=== PATIENT | male | born 1990 | race Caucasian/White ===

== ENCOUNTER 2019-12-17 01:16 | Inpatient (IN) | payer OTHER ==
[~2019-12-17] VITALS: Ht 180.3 cm; Wt 96.0 kg
[2019-12-17] VITALS (9 sets, daily range): BP systolic 96–112; BP diastolic 45–63
[2019-12-17] MEDS ORDERED: IV NORMAL SALINE 1000ML BAG 1,000 ML IV ONE (01:30)
[2019-12-17] MEDS ORDERED: PANTOPRAZOLE IV PUSH 40 MG VIAL. IVP ONE (01:30)
--- NOTE | 2019-12-17 01:38 | PHYS DOC ---
Adult General Chief Complaint Chief Complaint: HEMATEMESIS/VOMITING BLOOD HPI HPI Patient is a 29 year old male with history of peptic ulcer disease who presents with hematemesis just prior to arrival. Patient was attending a concert drinking alcohol and he vomited a large quantity of bright red blood. Patient with bright red blood staining his face arms, legs. Reports dizziness and upper abdominal pain. Patient not currently on any antacids. Previously referred to GI physician has not seen in follow-up. No history of esophageal varices. [] Review of Systems Review of Systems ROS as per HPI Current Medications Current Medications Current Medications Medications (Trade) Dose Ordered Sig/Lisa Start Time Stop Time Status Last Admin Dose Admin Iohexol (Omnipaque 300 Mg/ml) 75 ml 1X ONCE 12/17/19 02:30 12/17/19 02:31 DC 12/17/19 02:31 75 ML Ondansetron HCl (Zofran) 4 mg PRN Q8HRS PRN 12/17/19 02:45 12/18/19 02:44 Pantoprazole Sodium (PROTONIX VIAL for IV PUSH) 80 mg 1X ONCE 12/17/19 01:30 12/17/19 01:37 DC 12/17/19 02:06 80 MG Pantoprazole Sodium 80 mg/ Sodium Chloride 100 ml @ 10 mls/hr Q10H 12/17/19 01:45 12/17/19 02:00 10 MLS/HR Sodium Chloride 1,000 ml @ 125 mls/hr Q8H 12/17/19 02:45 12/18/19 02:44 Allergies Allergies Allergies Coded Allergies Type Severity Reaction Last Updated Verified No Known Drug Allergies 12/17/19 No Physical Exam Physical Exam Constitutional: Well developed, well nourished, no acute distress, non-toxic appearance. [] HENT: Normocephalic, atraumatic, bilateral external ears normal, oropharynx moist, nose normal. [] Eyes: PERRL, EOMI. [] Neck: Normal range of motion, no tenderness. [] Cardiovascular:Heart rate regular rhythm, no murmur [] Lungs & Thorax: Bilateral breath sounds clear to auscultation [] Abdomen: Bowel sounds normal, soft, epigastric tenderness. [] Skin: Warm, pale. [] Back: No tenderness. [] Extremities: No tenderness, no edema. [] Neurologic: Alert and oriented X 3, normal motor function, normal sensory function, no focal deficits noted. [] Psychologic: Affect normal, judgement normal, mood normal. [] Current Patient Data Vital Signs Vital Signs Date Time Temp Pulse Resp B/P (MAP) Pulse Ox O2 Delivery O2 Flow Rate FiO2 12/17/19 01:17 98.0 99 16 119/77 (91) 99 Room Air 98.0 Lab Values Laboratory Tests Test 12/17/19 01:31 White Blood Count 13.0 x10^3/uL (4.0-11.0) H Red Blood Count 4.76 x10^6/uL (4.30-5.70) Hemoglobin 13.7 g/dL (13.0-17.5) Hematocrit 40.2 % (39.0-53.0) Mean Corpuscular Volume 85 fL (79-100) Mean Corpuscular Hemoglobin 29 pg (25-35) Mean Corpuscular Hemoglobin Concent 34 g/dL (31-37) Red Cell Distribution Width 12.8 % (11.5-14.5) Platelet Count 281 x10^3/uL (140-400) Neutrophils (%) (Auto) 71 % (31-73) Lymphocytes (%) (Auto) 20 % (24-48) L Monocytes (%) (Auto) 6 % (0-9) Eosinophils (%) (Auto) 2 % (0-3) Basophils (%) (Auto) 1 % (0-3) Neutrophils # (Auto) 9.2 x10^3/uL (1.8-7.7) H Lymphocytes # (Auto) 2.6 x10^3/uL (1.0-4.8) Monocytes # (Auto) 0.8 x10^3/uL (0.0-1.1) Eosinophils # (Auto) 0.2 x10^3/uL (0.0-0.7) Basophils # (Auto) 0.1 x10^3/uL (0.0-0.2) Prothrombin Time 13.5 SEC (11.7-14.0) Prothrombin Time INR 1.1 (0.8-1.1) Activated Partial Thromboplast Time 22 SEC (24-38) L Sodium Level 141 mmol/L (136-145) Potassium Level 3.8 mmol/L (3.5-5.1) Chloride Level 103 mmol/L (98-107) Carbon Dioxide Level 25 mmol/L (21-32) Anion Gap 13 (6-14) Blood Urea Nitrogen 22 mg/dL (8-26) Creatinine 0.8 mg/dL (0.7-1.3) Estimated GFR (Cockcroft-Gault) 115.1 BUN/Creatinine Ratio 28 (6-20) H Glucose Level 130 mg/dL (70-99) H Calcium Level 8.1 mg/dL (8.5-10.1) L Total Bilirubin 0.3 mg/dL (0.2-1.0) Aspartate Amino Transferase (AST) 22 U/L (15-37) Alanine Aminotransferase (ALT) 40 U/L (16-63) Alkaline Phosphatase 59 U/L (46-116) Total Protein 6.4 g/dL (6.4-8.2) Albumin 3.5 g/dL (3.4-5.0) Albumin/Globulin Ratio 1.2 (1.0-1.7) Lipase 143 U/L (73-393) Ethyl Alcohol Level 65 mg/dL (0-10) H Laboratory Tests 12/17/19 01:31 Laboratory Tests 12/17/19 01:31 EKG EKG [] Radiology/Procedures Radiology/Procedures [] Course & Med Decision Making Course & Med Decision Making Pertinent Labs and Imaging studies reviewed. (See chart for details) [IV Protonix given. No recurrent bleeding in the ED. Will admit to hospital service with GI consult. Patient to remain n.p.o.] Jonah Disclaimer Jonah Disclaimer This electronic medical record was generated, in whole or in part, using a voice recognition dictation system. Departure Departure Impression: Primary Impression: Acute upper GI bleed Disposition: ADMITTED INPATIENT Condition: IMPROVED HOPE ALVARADO DO Dec 17, 2019 01:38
[2019-12-17 01:42] LABS: BASO # 0.1 x10^3/uL (0.0-0.2); BASO % 1 % (0-3); EOS # 0.2 x10^3/uL (0.0-0.7); EOS % 2 % (0-3); HEMATOCRIT 40.2 % (39.0-53.0); HEMOGLOBIN 13.7 g/dL (13.0-17.5); LYMPH # 2.6 x10^3/uL (1.0-4.8); LYMPH % 20 % (24-48); MEAN CORPUSCULAR HEMOGLOBIN 29 pg (25-35); MEAN CORPUSCULAR HGB CONC 34 g/dL (31-37); MEAN CORPUSCULAR VOLUME 85 fL (79-100); MONO # 0.8 x10^3/uL (0.0-1.1); MONO % 6 % (0-9); NEUT # 9.2 x10^3/uL (1.8-7.7); NEUT % 71 % (31-73); PLATELET COUNT 281 x10^3/uL (140-400); RED BLOOD COUNT 4.76 x10^6/uL (4.30-5.70); RED CELL DISTRIBUTION WIDTH 12.8 % (11.5-14.5)
[2019-12-17] MEDS ORDERED: ONDANSETRON PF 4 MG/2 ML VIAL. IVP ONE (01:45)
[2019-12-17 01:52] LABS: CALCIUM 8.1 mg/dL (8.5-10.1); CREATININE 0.8 mg/dL (0.7-1.3); GFR 115.1; POTASSIUM 3.8 mmol/L (3.5-5.1)
[2019-12-17 01:56] LABS: PROTHROMBIN TIME PATIENT 13.5 SEC (11.7-14.0)
[2019-12-17 01:58] LABS: ALBUMIN 3.5 g/dL (3.4-5.0); ALBUMIN/GLOBULIN RATIO 1.2 (1.0-1.7); TOTAL BILIRUBIN 0.3 mg/dL (0.2-1.0); TOTAL PROTEIN 6.4 g/dL (6.4-8.2)
[2019-12-17] MEDS: PANTOPRAZOLE SODIUM IV DRIP 80 MG in IV NORMAL SALINE 100ML 100 ML IV SCH ×3 (02:00→23:25)
[2019-12-17] MEDS ORDERED: IOHEXOL 300 MG/ML 100ML VIAL. IV ONE (02:30)
--- NOTE | 2019-12-17 02:41 | RAD ---
CT ABD PELV W/ IV CONTRST ONLY History: Upper GI bleed. Technique: After the administration of intravenous contrast, CT imaging was performed of the abdomen and pelvis. Multiplanar images are reviewed. Exposure: One or more of the following individualized dose reduction techniques were utilized for this examination: 1. Automated exposure control 2. Adjustment of the mA and/or kV according to patient size 3. Use of iterative reconstruction technique. Comparison: None Findings: Lower chest: No consolidation or pleural effusion. Abdomen and pelvis: Distal esophageal wall thickening. Small hiatal hernia. No pneumoperitoneum. Mildly enlarged distal parasellar esophageal lymph node measures 1.1 x 1.1 cm. The liver, spleen, adrenal glands, pancreas and gallbladder are unremarkable. No biliary ductal dilatation. Patent portal and hepatic veins. Normal appearance of the kidneys. No hydronephrosis. Normal appendix. No evidence of bowel obstruction. No ascites. Small fat-containing umbilical hernia. Bones: No pathologic osseous lesions. Impression: 1. Mild distal esophageal wall thickening, may represent esophagitis. 2. Distal periesophageal enlarged lymph nodes, likely reactive. 3. Small hiatal hernia. Electronically signed by: Amari Krueger DO (12/17/2019 2:38 AM) [id number]
[2019-12-17] MEDS ORDERED: ONDANSETRON PF 4 MG/2 ML VIAL. IV PRN (02:45)
[2019-12-17] MEDS: IV NORMAL SALINE 1000ML BAG 1,000 ML IV SCH ×3 (03:50→22:55)
--- NOTE | 2019-12-17 04:08 | EKG ---
[facility] [address] [place] [address] Test Date: 2019-12-17 Test Time: 01:35:53 Pat Name: DAELE CANDACE Department: Room: Gender: M [employer]: : 1990 Requested By: HOPE ALVARADO Order Number: [id number] Reading MD: Measurements Intervals [place] Rate: 103 P: 42 ND: 142 QRS: 23 QRSD: 76 T: 12 QT: 300 QTc: 394 Interpretive Statements SINUS TACHYCARDIA LOW LIMB LEAD VOLTAGE QRS(T) CONTOUR ABNORMALITY CANNOT RULE OUT ANTEROSEPTAL MYOCARDIAL DAMAGE BORDERLINE ECG No previous ECG available for comparison
--- NOTE | 2019-12-17 04:20 | NUR ---
pt admitted to room 108 from ED at this time. denies n/v since he he arrived to this facility. VSS on room air. pt kept NPO per current orders, able to answer admission questions and provide home medication information without difficulty. pt oriented to room, call light, bathroom privileges, unit routines and plan of care; verbalizes understanding. call light within reach, will continue to closely monitor.
[2019-12-17] MEDS ORDERED: HYDR25TA PO (05:04)
[2019-12-17] MEDS ORDERED: CARI1.5C PO (05:04)
[2019-12-17] MEDS ORDERED: IV RINGERS,LACTATED 1000ML 1,000 ML IV SCH (08:58)
--- NOTE | 2019-12-17 09:46 | PDOC2 ---
CONSULT Date of Consult Date of Consult DATE: 12/17/19 TIME: 09:38 Identification/Chief Complaint Chief Complaint hematemesis History of Present Illness Reason for Visit: This is a 29 yo male with a recent history of heartburn and indigestion, who had an episode of coffee ground emesis a few weeks ago. He went to urgent care- records?- but was not put on any meds and does not have a PCP. He admits to intermittent alcohol use, possible more recently. He presents now with recent lacohol use and vomiting blood- describes as red. No abd pain, no melena. Some use of ibuprofen a few weeks ago but none recently. Past Medical History GI: GERD Past Surgical History Past Surgical History: No pertinent history Current Medications Current Medications Current Medications Pantoprazole Sodium 80 mg/ Sodium Chloride 100 ml @ 10 mls/hr Q10H IV Last administered on 12/17/19at 02:00; Start 12/17/19 at 01:45 Pantoprazole Sodium (PROTONIX VIAL for IV PUSH) 80 mg 1X ONCE IVP Last administered on 12/17/19at 02:06; Start 12/17/19 at 01:30; Stop 12/17/19 at 01:37; Status DC Ondansetron HCl (Zofran) 4 mg 1X ONCE IVP Last administered on 12/17/19at 01:59; Start 12/17/19 at 01:45; Stop 12/17/19 at 01:46; Status DC Sodium Chloride 1,000 ml @ 1,000 mls/hr 1X ONCE IV Last administered on 12/17/19at 01:59; Start 12/17/19 at 01:30; Stop 12/17/19 at 02:29; Status DC Iohexol (Omnipaque 300 Mg/ml) 75 ml 1X ONCE IV Last administered on 12/17/19at 02:31; Start 12/17/19 at 02:30; Stop 12/17/19 at 02:31; Status DC Ondansetron HCl (Zofran) 4 mg PRN Q8HRS PRN IV NAUSEA/VOMITING; Start 12/17/19 at 02:45; Stop 12/18/19 at 02:44 Sodium Chloride 1,000 ml @ 125 mls/hr Q8H IV Last administered on 12/17/19at 03:50; Start 12/17/19 at 02:45; Stop 12/18/19 at 02:44 Ringer's Solution 1,000 ml @ 50 mls/hr Q20H IV Last administered on 12/17/19at 09:32; Start 12/17/19 at 08:58; Stop 12/17/19 at 20:57 Active Scripts Active Reported Hydroxyzine Hcl 25 Mg Tablet 1 Tab PO PRN PRN Vraylar (Cariprazine Hydrochloride) 1.5 Mg Capsule 1 Cap PO DAILY 30 Days Allergies Allergies: Coded Allergies: No Known Drug Allergies (Unverified , 12/17/19) Physical Exam General: Alert, Oriented X3 HEENT: PERRLA Lungs: Clear to auscultation Heart: Regular rate, Normal S1, Normal S2 Abdomen: Normal bowel sounds, Soft, No tenderness, No hepatosplenomegaly, No masses Extremities: No clubbing, No cyanosis Neuro: Normal gait, Normal speech Psych/Mental Status: Mental status NL Vitals VITALS Vital Signs Date Time Temp Pulse Resp B/P (MAP) Pulse Ox O2 Delivery O2 Flow Rate FiO2 12/17/19 09:26 97.8 88 18 97 97.8 12/17/19 08:00 108/57 (74) Room Air Labs Labs Laboratory Tests Test 12/17/19 01:31 White Blood Count 13.0 x10^3/uL (4.0-11.0) Red Blood Count 4.76 x10^6/uL (4.30-5.70) Hemoglobin 13.7 g/dL (13.0-17.5) Hematocrit 40.2 % (39.0-53.0) Mean Corpuscular Volume 85 fL (79-100) Mean Corpuscular Hemoglobin 29 pg (25-35) Mean Corpuscular Hemoglobin Concent 34 g/dL (31-37) Red Cell Distribution Width 12.8 % (11.5-14.5) Platelet Count 281 x10^3/uL (140-400) Neutrophils (%) (Auto) 71 % (31-73) Lymphocytes (%) (Auto) 20 % (24-48) Monocytes (%) (Auto) 6 % (0-9) Eosinophils (%) (Auto) 2 % (0-3) Basophils (%) (Auto) 1 % (0-3) Neutrophils # (Auto) 9.2 x10^3/uL (1.8-7.7) Lymphocytes # (Auto) 2.6 x10^3/uL (1.0-4.8) Monocytes # (Auto) 0.8 x10^3/uL (0.0-1.1) Eosinophils # (Auto) 0.2 x10^3/uL (0.0-0.7) Basophils # (Auto) 0.1 x10^3/uL (0.0-0.2) Prothrombin Time 13.5 SEC (11.7-14.0) Prothromb Time International Ratio 1.1 (0.8-1.1) Activated Partial Thromboplast Time 22 SEC (24-38) Sodium Level 141 mmol/L (136-145) Potassium Level 3.8 mmol/L (3.5-5.1) Chloride Level 103 mmol/L (98-107) Carbon Dioxide Level 25 mmol/L (21-32) Anion Gap 13 (6-14) Blood Urea Nitrogen 22 mg/dL (8-26) Creatinine 0.8 mg/dL (0.7-1.3) Estimated GFR (Cockcroft-Gault) 115.1 BUN/Creatinine Ratio 28 (6-20) Glucose Level 130 mg/dL (70-99) Calcium Level 8.1 mg/dL (8.5-10.1) Total Bilirubin 0.3 mg/dL (0.2-1.0) Aspartate Amino Transf (AST/SGOT) 22 U/L (15-37) Alanine Aminotransferase (ALT/SGPT) 40 U/L (16-63) Alkaline Phosphatase 59 U/L (46-116) Total Protein 6.4 g/dL (6.4-8.2) Albumin 3.5 g/dL (3.4-5.0) Albumin/Globulin Ratio 1.2 (1.0-1.7) Lipase 143 U/L (73-393) Ethyl Alcohol Level 65 mg/dL (0-10) Laboratory Tests Test 12/17/19 01:31 White Blood Count 13.0 x10^3/uL (4.0-11.0) Red Blood Count 4.76 x10^6/uL (4.30-5.70) Hemoglobin 13.7 g/dL (13.0-17.5) Hematocrit 40.2 % (39.0-53.0) Mean Corpuscular Volume 85 fL (79-100) Mean Corpuscular Hemoglobin 29 pg (25-35) Mean Corpuscular Hemoglobin Concent 34 g/dL (31-37) Red Cell Distribution Width 12.8 % (11.5-14.5) Platelet Count 281 x10^3/uL (140-400) Neutrophils (%) (Auto) 71 % (31-73) Lymphocytes (%) (Auto) 20 % (24-48) Monocytes (%) (Auto) 6 % (0-9) Eosinophils (%) (Auto) 2 % (0-3) Basophils (%) (Auto) 1 % (0-3) Neutrophils # (Auto) 9.2 x10^3/uL (1.8-7.7) Lymphocytes # (Auto) 2.6 x10^3/uL (1.0-4.8) Monocytes # (Auto) 0.8 x10^3/uL (0.0-1.1) Eosinophils # (Auto) 0.2 x10^3/uL (0.0-0.7) Basophils # (Auto) 0.1 x10^3/uL (0.0-0.2) Prothrombin Time 13.5 SEC (11.7-14.0) Prothromb Time International Ratio 1.1 (0.8-1.1) Activated Partial Thromboplast Time 22 SEC (24-38) Sodium Level 141 mmol/L (136-145) Potassium Level 3.8 mmol/L (3.5-5.1) Chloride Level 103 mmol/L (98-107) Carbon Dioxide Level 25 mmol/L (21-32) Anion Gap 13 (6-14) Blood Urea Nitrogen 22 mg/dL (8-26) Creatinine 0.8 mg/dL (0.7-1.3) Estimated GFR (Cockcroft-Gault) 115.1 BUN/Creatinine Ratio 28 (6-20) Glucose Level 130 mg/dL (70-99) Calcium Level 8.1 mg/dL (8.5-10.1) Total Bilirubin 0.3 mg/dL (0.2-1.0) Aspartate Amino Transf (AST/SGOT) 22 U/L (15-37) Alanine Aminotransferase (ALT/SGPT) 40 U/L (16-63) Alkaline Phosphatase 59 U/L (46-116) Total Protein 6.4 g/dL (6.4-8.2) Albumin 3.5 g/dL (3.4-5.0) Albumin/Globulin Ratio 1.2 (1.0-1.7) Lipase 143 U/L (73-393) Ethyl Alcohol Level 65 mg/dL (0-10) Assessment/Plan Assessment/Plan Recent episodes of GI bleeding- coffee ground emesis a few weeks ago and now with red blood emesis. Some heartburn hx and recent alcohol use. Hgb and vitals are stable. Need to consider MW tear, eosphagitis, gastric ulcer, varices etc Plan- PPI urgent EGD stop alcohol and NSAIDS JUNIOR BATISTA MD Dec 17, 2019 09:46
[2019-12-17] MEDS ORDERED: PROPOFOL 20 ML IV ONE (09:54)
--- NOTE | 2019-12-17 10:38 | PDOC4 ---
PROCEDURE Procedure EGD Hematemesis Anesthesia- propofol Findings E- ulcerative esophagitis (GERD) 5 cm Hiatal hernia Small non bleeding Berkley Pablo tear G- gastritis D- normal Plan PPI (script given) daily - also prn Zofran NO ALCOHOL NO NSAIDS OK to d/c today if tolerating liquid diet JUNIOR BATISTA MD Dec 17, 2019 10:37
--- NOTE | 2019-12-17 10:43 | PDOC1 ---
History and Physical Date of Admission Date of Admission DATE: 12/17/19 TIME: 10:42 Identification/Chief Complaint Chief Complaint SEEN IN ER WITH HEMATEMESIS, 29 year old male with history of peptic ulcer disease who presents with hematemesis just prior to arrival. He was attending a concert drinking alcohol and he vomited a large quantity of bright red blood.seen with bright red blood staining his face arms, legs. c/o dizziness and upper abdominal pain. Previously referred to GI physician has not seen in follow-up. No known history of esophageal varices STARTED DRINKING AGE 22, heavily in last year, roommate drinks in excess Past Medical History Past Medical History alcohol abuse GI: GERD Past Surgical History Past Surgical History: No pertinent history Family History Family History: Alcohol Abuse, Hypertension Social History Smoke: No ALCOHOL: heavy Drugs: None Current Medications Current Medications Current Medications Pantoprazole Sodium 80 mg/ Sodium Chloride 100 ml @ 10 mls/hr Q10H IV Last administered on 12/17/19at 02:00; Start 12/17/19 at 01:45 Pantoprazole Sodium (PROTONIX VIAL for IV PUSH) 80 mg 1X ONCE IVP Last administered on 12/17/19at 02:06; Start 12/17/19 at 01:30; Stop 12/17/19 at 01:37; Status DC Ondansetron HCl (Zofran) 4 mg 1X ONCE IVP Last administered on 12/17/19at 01:59; Start 12/17/19 at 01:45; Stop 12/17/19 at 01:46; Status DC Sodium Chloride 1,000 ml @ 1,000 mls/hr 1X ONCE IV Last administered on 12/17/19at 01:59; Start 12/17/19 at 01:30; Stop 12/17/19 at 02:29; Status DC Iohexol (Omnipaque 300 Mg/ml) 75 ml 1X ONCE IV Last administered on 12/17/19at 02:31; Start 12/17/19 at 02:30; Stop 12/17/19 at 02:31; Status DC Ondansetron HCl (Zofran) 4 mg PRN Q8HRS PRN IV NAUSEA/VOMITING; Start 12/17/19 at 02:45; Stop 12/18/19 at 02:44 Sodium Chloride 1,000 ml @ 125 mls/hr Q8H IV Last administered on 12/17/19at 03:50; Start 12/17/19 at 02:45; Stop 12/18/19 at 02:44 Ringer's Solution 1,000 ml @ 50 mls/hr Q20H IV Last administered on 12/17/19at 09:32; Start 12/17/19 at 08:58; Stop 12/17/19 at 20:57 Propofol 20 ml @ As Directed STK-MED ONCE IV ; Start 12/17/19 at 09:54; Stop 12/17/19 at 09:54; Status DC Active Scripts Active Reported Hydroxyzine Hcl 25 Mg Tablet 1 Tab PO PRN PRN Vraylar (Cariprazine Hydrochloride) 1.5 Mg Capsule 1 Cap PO DAILY 30 Days Allergies Allergies: Coded Allergies: No Known Drug Allergies (Unverified , 12/17/19) ROS General: No: Chills, Night Sweats, Fatigue, Malaise, Appetite, Other PSYCHOLOGICAL ROS: YES: Anxiety, Behavioral Disorder; No: Concentration difficultie, Decreased libido, Depression, Disorientation, Hallucinations, Hostility, Irritablity, Memory difficulties, Mood Swings, Obsessive thoughts, Physical abuse, Sexual abuse, Sleep disturbances, Suicidal ideation, Other Eyes: No Blurry vision, No Decreased vision, No Double vision, No Dry eyes, No Excessive tearing, No Eye Pain, No Itchy Eyes, No Loss of vision, No Photophobia, No Scotomata, No Uses contacts, No Uses glasses, No Other HEENT: No: Heacaches, Visual Changes, Hearing change, Nasal congestion, Nasal discharge, Oral lesions, Sinus pain, Sore Throat, Epistaxis, Sneezing, Snoring, Tinnitus, Vertigo, Vocal changes, Other ALLERGY AND IMMUNOLOGY: No: Hives, Insect Bite Sensitivity, Itchy/Watery Eyes, Nasal Congestion, Post Nasal Drip, Seasonal Allergies, Other ENDOCRINE: No: Breast Changes, Galactorrhea, Hair Pattern Changes, Hot Flashes, Malaise/lethargy, Mood Swings, Palpitations, Polydipsia/polyuria, Skin Changes, Temperature Intolerance, Unexpected Weight Changes, Other Respiratory: No: Cough, Hemoptysis, Orthopnea, Pleuritic Pain, Shortness of breath, SOB with excertion, Sputum Changes, Stridor, Tachypnea, Wheezing, Other Cardiovascular: No Chest Pain, No Palpitations, No Orthopnea, No Paroxysmal Noc. Dyspnea, No Edema, No Lt Headedness, No Other Gastrointestinal: Yes Nausea, Yes Vomiting; No Abdominal Pain, No Diarrhea, No Constipation, No Melena, No Hematochezia, No Other Genitourinary: No Dysuria, No Frequency, No Incontinence, No Hematuria, No Retention, No Discharge, No Urgency, No Pain, No Flank Pain, No Other, No , No , No , No , No , No , No Musculoskeletal: No Gait Disturbance, No Joint Pain, No Joint Stiffness, No Joint Swelling, No Muscle Pain, No Muscular Weakness, No Pain In:, No Swelling In:, No Other Neurological: No Behavorial Changes, No Bowel/Bladder ControlChng, No Confusion, No Dizziness, No Gait Disturbance, No Headaches, No Impaired Coord/balance, No Memory Loss, No Numbness/Tingling, No Seizures, No Speech Problems, No Tremors, No Visual Changes, No Weakness, No Other Skin: No Dry Skin, No Eczema, No Hair Changes, No Lumps, No Mole Changes, No Mottling, No Nail Changes, No Pruritus, No Rash, No Skin Lesion Changes, No Other, No Acne Physical Exam Physical Exam Physical Exam Physical Exam Constitutional: Well developed, well nourished, no acute distress, non-toxic appearance. [] HENT: Normocephalic, atraumatic, bilateral external ears normal, oropharynx moist, nose normal. [] Eyes: PERRL, EOMI. [] Neck: Normal range of motion, no tenderness. [] Cardiovascular:Heart rate regular rhythm, no murmur [] Lungs & Thorax: Bilateral breath sounds clear to auscultation [] Abdomen: Bowel sounds normal, soft, epigastric tenderness. [] Skin: Warm, pale. [] Back: No tenderness. [] Extremities: No tenderness, no edema. [] Neurologic: Alert and oriented X 3, normal motor function, normal sensory function, no focal deficits noted. [] Psychologic: Affect normal, judgment normal, mood normal. [] Vitals Vitals Vital Signs Date Time Temp Pulse Resp B/P (MAP) Pulse Ox O2 Delivery O2 Flow Rate FiO2 12/17/19 10:28 97.8 84 18 77/39 96 Nasal Cannula 2 97.8 Labs Labs Laboratory Tests Test 12/17/19 01:31 White Blood Count 13.0 x10^3/uL (4.0-11.0) Red Blood Count 4.76 x10^6/uL (4.30-5.70) Hemoglobin 13.7 g/dL (13.0-17.5) Hematocrit 40.2 % (39.0-53.0) Mean Corpuscular Volume 85 fL (79-100) Mean Corpuscular Hemoglobin 29 pg (25-35) Mean Corpuscular Hemoglobin Concent 34 g/dL (31-37) Red Cell Distribution Width 12.8 % (11.5-14.5) Platelet Count 281 x10^3/uL (140-400) Neutrophils (%) (Auto) 71 % (31-73) Lymphocytes (%) (Auto) 20 % (24-48) Monocytes (%) (Auto) 6 % (0-9) Eosinophils (%) (Auto) 2 % (0-3) Basophils (%) (Auto) 1 % (0-3) Neutrophils # (Auto) 9.2 x10^3/uL (1.8-7.7) Lymphocytes # (Auto) 2.6 x10^3/uL (1.0-4.8) Monocytes # (Auto) 0.8 x10^3/uL (0.0-1.1) Eosinophils # (Auto) 0.2 x10^3/uL (0.0-0.7) Basophils # (Auto) 0.1 x10^3/uL (0.0-0.2) Prothrombin Time 13.5 SEC (11.7-14.0) Prothromb Time International Ratio 1.1 (0.8-1.1) Activated Partial Thromboplast Time 22 SEC (24-38) Sodium Level 141 mmol/L (136-145) Potassium Level 3.8 mmol/L (3.5-5.1) Chloride Level 103 mmol/L (98-107) Carbon Dioxide Level 25 mmol/L (21-32) Anion Gap 13 (6-14) Blood Urea Nitrogen 22 mg/dL (8-26) Creatinine 0.8 mg/dL (0.7-1.3) Estimated GFR (Cockcroft-Gault) 115.1 BUN/Creatinine Ratio 28 (6-20) Glucose Level 130 mg/dL (70-99) Calcium Level 8.1 mg/dL (8.5-10.1) Total Bilirubin 0.3 mg/dL (0.2-1.0) Aspartate Amino Transf (AST/SGOT) 22 U/L (15-37) Alanine Aminotransferase (ALT/SGPT) 40 U/L (16-63) Alkaline Phosphatase 59 U/L (46-116) Total Protein 6.4 g/dL (6.4-8.2) Albumin 3.5 g/dL (3.4-5.0) Albumin/Globulin Ratio 1.2 (1.0-1.7) Lipase 143 U/L (73-393) Ethyl Alcohol Level 65 mg/dL (0-10) Laboratory Tests Test 12/17/19 01:31 White Blood Count 13.0 x10^3/uL (4.0-11.0) Red Blood Count 4.76 x10^6/uL (4.30-5.70) Hemoglobin 13.7 g/dL (13.0-17.5) Hematocrit 40.2 % (39.0-53.0) Mean Corpuscular Volume 85 fL (79-100) Mean Corpuscular Hemoglobin 29 pg (25-35) Mean Corpuscular Hemoglobin Concent 34 g/dL (31-37) Red Cell Distribution Width 12.8 % (11.5-14.5) Platelet Count 281 x10^3/uL (140-400) Neutrophils (%) (Auto) 71 % (31-73) Lymphocytes (%) (Auto) 20 % (24-48) Monocytes (%) (Auto) 6 % (0-9) Eosinophils (%) (Auto) 2 % (0-3) Basophils (%) (Auto) 1 % (0-3) Neutrophils # (Auto) 9.2 x10^3/uL (1.8-7.7) Lymphocytes # (Auto) 2.6 x10^3/uL (1.0-4.8) Monocytes # (Auto) 0.8 x10^3/uL (0.0-1.1) Eosinophils # (Auto) 0.2 x10^3/uL (0.0-0.7) Basophils # (Auto) 0.1 x10^3/uL (0.0-0.2) Prothrombin Time 13.5 SEC (11.7-14.0) Prothromb Time International Ratio 1.1 (0.8-1.1) Activated Partial Thromboplast Time 22 SEC (24-38) Sodium Level 141 mmol/L (136-145) Potassium Level 3.8 mmol/L (3.5-5.1) Chloride Level 103 mmol/L (98-107) Carbon Dioxide Level 25 mmol/L (21-32) Anion Gap 13 (6-14) Blood Urea Nitrogen 22 mg/dL (8-26) Creatinine 0.8 mg/dL (0.7-1.3) Estimated GFR (Cockcroft-Gault) 115.1 BUN/Creatinine Ratio 28 (6-20) Glucose Level 130 mg/dL (70-99) Calcium Level 8.1 mg/dL (8.5-10.1) Total Bilirubin 0.3 mg/dL (0.2-1.0) Aspartate Amino Transf (AST/SGOT) 22 U/L (15-37) Alanine Aminotransferase (ALT/SGPT) 40 U/L (16-63) Alkaline Phosphatase 59 U/L (46-116) Total Protein 6.4 g/dL (6.4-8.2) Albumin 3.5 g/dL (3.4-5.0) Albumin/Globulin Ratio 1.2 (1.0-1.7) Lipase 143 U/L (73-393) Ethyl Alcohol Level 65 mg/dL (0-10) Images Images CT ABD PELV W/ IV CONTRST ONLY History: Upper GI bleed. Technique: After the administration of intravenous contrast, CT imaging was performed of the abdomen and pelvis. Multiplanar images are reviewed. Exposure: One or more of the following individualized dose reduction techniques were utilized for this examination: 1. Automated exposure control 2. Adjustment of the mA and/or kV according to patient size 3. Use of iterative reconstruction technique. Comparison: None Findings: Lower chest: No consolidation or pleural effusion. Abdomen and pelvis: Distal esophageal wall thickening. Small hiatal hernia. No pneumoperitoneum. Mildly enlarged distal parasellar esophageal lymph node measures 1.1 x 1.1 cm. The liver, spleen, adrenal glands, pancreas and gallbladder are unremarkable. No biliary ductal dilatation. Patent portal and hepatic veins. Normal appearance of the kidneys. No hydronephrosis. Normal appendix. No evidence of bowel obstruction. No ascites. Small fat-containing umbilical hernia. Bones: No pathologic osseous lesions. Impression: 1. Mild distal esophageal wall thickening, may represent esophagitis. 2. Distal periesophageal enlarged lymph nodes, likely reactive. 3. Small hiatal hernia. Electronically signed by: Amari Krueger DO (12/17/2019 2:38 AM) [id number] VTE Prophylaxis Ordered VTE Prophylaxis Devices: Contraindicated VTE Pharmacological Prophylaxi: Contraindicated Assessment/Plan Assessment/Plan Impression: Acute upper GI bleed ALCOHOL ABUSE HX recent increased intake ulcerative esophagitis (GERD) 5 cm Hiatal hernia Small non bleeding Berkley Pablo tear ON EGD 12/16 OBESITY bipolar disorder hypotensive shock, HYPOVOLEMIC ADMITTED icu bed GI CONSULT IV FLUID SUPPORT CBC NOW FULL LIQUID DIET ATTEND AA protonix drip AM LABS IV FLUID SUPPORT SCD'S D/W PARENTS IN ROOM 36 min cc time BIANCA WAYNE MD Dec 17, 2019 10:43
[2019-12-17] MEDS ORDERED: diphenhydrAMINE 50 MG/ML VIAL IVP PRN (11:45)
[2019-12-17] MEDS ORDERED: cloNIDine HCL 0.1 MG TABLET PO PRN (11:45)
[2019-12-17] MEDS ORDERED: LORazepam 1 MG TABLET PO PRN ×2 (11:45)
[2019-12-17] MEDS ORDERED: HALOPERIDOL LACTATE 5 MG/ML VIAL. IVP PRN (11:45)
[2019-12-17] MEDS ORDERED: hydrOXYzine 25 MG TABLET PO PRN (12:30)
[2019-12-17 13:34] LABS: BASO # 0.1 x10^3/uL (0.0-0.2); BASO % 1 % (0-3); EOS # 0.2 x10^3/uL (0.0-0.7); EOS % 2 % (0-3); HEMATOCRIT 35.1 % (39.0-53.0); LYMPH # 2.6 x10^3/uL (1.0-4.8); LYMPH % 24 % (24-48); MEAN CORPUSCULAR HEMOGLOBIN 29 pg (25-35); MEAN CORPUSCULAR HGB CONC 34 g/dL (31-37); MEAN CORPUSCULAR VOLUME 86 fL (79-100); MONO # 0.6 x10^3/uL (0.0-1.1); MONO % 6 % (0-9); NEUT # 7.5 x10^3/uL (1.8-7.7); NEUT % 68 % (31-73); PLATELET COUNT 218 x10^3/uL (140-400); RED CELL DISTRIBUTION WIDTH 12.9 % (11.5-14.5); WHITE BLOOD COUNT 11.1 x10^3/uL (4.0-11.0)
[2019-12-17] MEDS: MULTIVITAMIN with MINERAL TABLET. PO SCH (15:45)
[2019-12-17] MEDS: FOLIC ACID 1 MG TABLET. PO SCH (15:46)
[2019-12-17] MEDS: THIAMINE 100 MG TABLET. PO SCH (15:47)
[2019-12-17 18:38] LABS: AMPHETAMINE/METHAMPHETAMINE NEG (NEG); BARBITURATES NEG (NEG); BENZODIAZEPINES NEG (NEG); CANNABINOIDS NEG (NEG); COCAINE NEG (NEG); METHADONE NEG (NEG); OPIATES NEG (NEG); PHENCYCLIDINE NEG (NEG)
[2019-12-18 03:30] VITALS: BP 102/55
[2019-12-18 05:05] LABS: BASO % 1 % (0-3); EOS # 0.3 x10^3/uL (0.0-0.7); EOS % 6 % (0-3); HEMATOCRIT 29.6 % (39.0-53.0); HEMOGLOBIN 10.2 g/dL (13.0-17.5); LYMPH # 2.1 x10^3/uL (1.0-4.8); LYMPH % 36 % (24-48); MEAN CORPUSCULAR HEMOGLOBIN 29 pg (25-35); MEAN CORPUSCULAR HGB CONC 35 g/dL (31-37); MEAN CORPUSCULAR VOLUME 85 fL (79-100); MONO # 0.4 x10^3/uL (0.0-1.1); MONO % 7 % (0-9); NEUT % 51 % (31-73); PLATELET COUNT 184 x10^3/uL (140-400); RED BLOOD COUNT 3.48 x10^6/uL (4.30-5.70); RED CELL DISTRIBUTION WIDTH 12.6 % (11.5-14.5)
[2019-12-18 05:30] LABS: ALBUMIN 2.8 g/dL (3.4-5.0); ALBUMIN/GLOBULIN RATIO 1.2 (1.0-1.7); CALCIUM 7.8 mg/dL (8.5-10.1); CREATININE 0.6 mg/dL (0.7-1.3); GFR 160.4; POTASSIUM 3.8 mmol/L (3.5-5.1); TOTAL BILIRUBIN 0.3 mg/dL (0.2-1.0); TOTAL PROTEIN 5.1 g/dL (6.4-8.2)
[2019-12-18 07:59] VITALS: BP 109/66
[2019-12-18] MEDS ORDERED: NON FORMULARY ITEM (Cariprazine Hydrochloride (Vraylar) 1 CAP) PO SCH (09:00)
--- NOTE | 2019-12-18 09:16 | PDOC ---
GI PROGRESS NOTES Date Date/Time DATE: 12/18/19 TIME: 09:13 Subjective Subjective No further vomiting or bleeding. Hemoglobin dropped consistent with his prior bleed but is likely equilibrating at this point. He is tolerating diet Objective Vitals Vital Signs Date Time Temp Pulse Resp B/P (MAP) Pulse Ox O2 Delivery O2 Flow Rate FiO2 12/18/19 07:59 97.9 86 18 109/66 (80) 100 Room Air 97.9 12/18/19 03:30 97.4 62 19 102/55 (71) 99 Room Air 97.4 12/17/19 23:30 97.4 19 104/58 (73) 100 Room Air 97.4 12/17/19 19:35 98.2 80 19 100/45 (63) 100 Room Air 98.2 12/17/19 15:00 98.2 76 18 105/59 (74) 100 Room Air 98.2 12/17/19 11:00 79 22 112/60 (77) 98 Room Air 12/17/19 10:58 78 18 105/48 96 Room Air 12/17/19 10:43 97.8 80 18 103/45 96 Room Air 97.8 12/17/19 10:28 97.8 84 18 77/39 96 Nasal Cannula 2 97.8 12/17/19 09:26 97.8 88 18 97 97.8 Labs Labs Laboratory Tests Test 12/17/19 12:45 12/17/19 18:20 12/18/19 04:20 White Blood Count 11.1 x10^3/uL (4.0-11.0) 6.0 x10^3/uL (4.0-11.0) Red Blood Count 4.10 x10^6/uL (4.30-5.70) 3.48 x10^6/uL (4.30-5.70) Hemoglobin 12.0 g/dL (13.0-17.5) 10.2 g/dL (13.0-17.5) Hematocrit 35.1 % (39.0-53.0) 29.6 % (39.0-53.0) Mean Corpuscular Volume 86 fL (79-100) 85 fL (79-100) Mean Corpuscular Hemoglobin 29 pg (25-35) 29 pg (25-35) Mean Corpuscular Hemoglobin Concent 34 g/dL (31-37) 35 g/dL (31-37) Red Cell Distribution Width 12.9 % (11.5-14.5) 12.6 % (11.5-14.5) Platelet Count 218 x10^3/uL (140-400) 184 x10^3/uL (140-400) Neutrophils (%) (Auto) 68 % (31-73) 51 % (31-73) Lymphocytes (%) (Auto) 24 % (24-48) 36 % (24-48) Monocytes (%) (Auto) 6 % (0-9) 7 % (0-9) Eosinophils (%) (Auto) 2 % (0-3) 6 % (0-3) Basophils (%) (Auto) 1 % (0-3) 1 % (0-3) Neutrophils # (Auto) 7.5 x10^3/uL (1.8-7.7) 3.0 x10^3/uL (1.8-7.7) Lymphocytes # (Auto) 2.6 x10^3/uL (1.0-4.8) 2.1 x10^3/uL (1.0-4.8) Monocytes # (Auto) 0.6 x10^3/uL (0.0-1.1) 0.4 x10^3/uL (0.0-1.1) Eosinophils # (Auto) 0.2 x10^3/uL (0.0-0.7) 0.3 x10^3/uL (0.0-0.7) Basophils # (Auto) 0.1 x10^3/uL (0.0-0.2) 0.0 x10^3/uL (0.0-0.2) Urine Opiates Screen Neg (NEG) Urine Methadone Screen Neg (NEG) Urine Barbiturates Neg (NEG) Urine Phencyclidine Screen Neg (NEG) Urine Amphetamine/Methamphetamine Neg (NEG) Urine Benzodiazepines Screen Neg (NEG) Urine Cocaine Screen Neg (NEG) Urine Cannabinoids Screen Neg (NEG) Urine Ethyl Alcohol Neg (NEG) Sodium Level 142 mmol/L (136-145) Potassium Level 3.8 mmol/L (3.5-5.1) Chloride Level 108 mmol/L (98-107) Carbon Dioxide Level 26 mmol/L (21-32) Anion Gap 8 (6-14) Blood Urea Nitrogen 13 mg/dL (8-26) Creatinine 0.6 mg/dL (0.7-1.3) Estimated GFR (Cockcroft-Gault) 160.4 BUN/Creatinine Ratio 22 (6-20) Glucose Level 93 mg/dL (70-99) Calcium Level 7.8 mg/dL (8.5-10.1) Total Bilirubin 0.3 mg/dL (0.2-1.0) Aspartate Amino Transf (AST/SGOT) 16 U/L (15-37) Alanine Aminotransferase (ALT/SGPT) 29 U/L (16-63) Alkaline Phosphatase 42 U/L (46-116) Total Protein 5.1 g/dL (6.4-8.2) Albumin 2.8 g/dL (3.4-5.0) Albumin/Globulin Ratio 1.2 (1.0-1.7) Physical Exam Physical Exam alert Chest clear Abdomen soft nontender no organomegaly or masses and normal bowel sounds Assessment Assessment Upper GI bleed with hematemesis. Clinically stable. EGD revealed Berkley-Pablo tear and erosive esophagitis with large hiatal hernia. Acute bleeding likely from Berkley-Pablo tear, likely related to alcohol ingestion Plan Plan Needs daily Protonix Avoid nausea, vomiting and I would strongly recommend little or no alcohol ingestion Stable from a GI perspective for discharge. He can call our office for further outpatient follow-up JUNIOR BATISTA MD Dec 18, 2019 09:16
[2019-12-18] MEDS: FOLIC ACID 1 MG TABLET. PO SCH (09:54)
[2019-12-18] MEDS: MULTIVITAMIN with MINERAL TABLET. PO SCH (09:54)
[2019-12-18] MEDS: THIAMINE 100 MG TABLET. PO SCH (09:54)
[2019-12-18] MEDS: PANTOPRAZOLE SODIUM IV DRIP 80 MG in IV NORMAL SALINE 100ML 100 ML IV SCH (09:56)
--- NOTE | 2019-12-18 11:15 | PDOC ---
PROGRESS NOTES Chief Complaint Chief Complaint A/P: Acute upper GI bleed ALCOHOL ABUSE HX recent increased intake - ETOH 65 at 0130 12/17/2019 ulcerative esophagitis (GERD) 5 cm Hiatal hernia Small non bleeding Berkley Pablo tear ON EGD 12/16 OBESITY bipolar disorder hypotensive shock, HYPOVOLEMIC History of Present Illness History of Present Illness Mr Macedo is a 29 yo M w/ PMHx peptic ulcer disease who presents with hematemesis just prior to arrival 12/17/2019. He was attending a concert drinking alcohol and he vomited a large quantity of bright red blood.seen with bright red blood staining his face arms, legs. c/o dizziness and upper abdominal pain. CT abdomen/pelvis: 1. Mild distal esophageal wall thickening, may represent esophagitis. 2. Distal periesophageal enlarged lymph nodes, likely reactive. 3. Small hiatal hernia. 12/16: EGD - ulcerative esophagitis (GERD) with 5 cm Hiatal hernia and small non bleeding Berkley Pablo tear as well as gastritis. Feeling much better today. discussed ETOH cessation for at least a month and BID protonix for 30 days. Hb stable. Discussed with him and his mother. Vitals Vitals Vital Signs Date Time Temp Pulse Resp B/P (MAP) Pulse Ox O2 Delivery O2 Flow Rate FiO2 12/18/19 07:59 97.9 86 18 109/66 (80) 100 Room Air 97.9 12/17/19 10:28 2 Physical Exam General: Alert, Oriented X3 Heart: Regular rate, Normal S1, Normal S2 Abdomen: Normal bowel sounds, Soft, No tenderness, No hepatosplenomegaly, No masses Extremities: No clubbing, No cyanosis Labs LABS Laboratory Tests Test 12/17/19 12:45 12/17/19 18:20 12/18/19 04:20 White Blood Count 11.1 x10^3/uL (4.0-11.0) 6.0 x10^3/uL (4.0-11.0) Red Blood Count 4.10 x10^6/uL (4.30-5.70) 3.48 x10^6/uL (4.30-5.70) Hemoglobin 12.0 g/dL (13.0-17.5) 10.2 g/dL (13.0-17.5) Hematocrit 35.1 % (39.0-53.0) 29.6 % (39.0-53.0) Mean Corpuscular Volume 86 fL (79-100) 85 fL (79-100) Mean Corpuscular Hemoglobin 29 pg (25-35) 29 pg (25-35) Mean Corpuscular Hemoglobin Concent 34 g/dL (31-37) 35 g/dL (31-37) Red Cell Distribution Width 12.9 % (11.5-14.5) 12.6 % (11.5-14.5) Platelet Count 218 x10^3/uL (140-400) 184 x10^3/uL (140-400) Neutrophils (%) (Auto) 68 % (31-73) 51 % (31-73) Lymphocytes (%) (Auto) 24 % (24-48) 36 % (24-48) Monocytes (%) (Auto) 6 % (0-9) 7 % (0-9) Eosinophils (%) (Auto) 2 % (0-3) 6 % (0-3) Basophils (%) (Auto) 1 % (0-3) 1 % (0-3) Neutrophils # (Auto) 7.5 x10^3/uL (1.8-7.7) 3.0 x10^3/uL (1.8-7.7) Lymphocytes # (Auto) 2.6 x10^3/uL (1.0-4.8) 2.1 x10^3/uL (1.0-4.8) Monocytes # (Auto) 0.6 x10^3/uL (0.0-1.1) 0.4 x10^3/uL (0.0-1.1) Eosinophils # (Auto) 0.2 x10^3/uL (0.0-0.7) 0.3 x10^3/uL (0.0-0.7) Basophils # (Auto) 0.1 x10^3/uL (0.0-0.2) 0.0 x10^3/uL (0.0-0.2) Urine Opiates Screen Neg (NEG) Urine Methadone Screen Neg (NEG) Urine Barbiturates Neg (NEG) Urine Phencyclidine Screen Neg (NEG) Urine Amphetamine/Methamphetamine Neg (NEG) Urine Benzodiazepines Screen Neg (NEG) Urine Cocaine Screen Neg (NEG) Urine Cannabinoids Screen Neg (NEG) Urine Ethyl Alcohol Neg (NEG) Sodium Level 142 mmol/L (136-145) Potassium Level 3.8 mmol/L (3.5-5.1) Chloride Level 108 mmol/L (98-107) Carbon Dioxide Level 26 mmol/L (21-32) Anion Gap 8 (6-14) Blood Urea Nitrogen 13 mg/dL (8-26) Creatinine 0.6 mg/dL (0.7-1.3) Estimated GFR (Cockcroft-Gault) 160.4 BUN/Creatinine Ratio 22 (6-20) Glucose Level 93 mg/dL (70-99) Calcium Level 7.8 mg/dL (8.5-10.1) Total Bilirubin 0.3 mg/dL (0.2-1.0) Aspartate Amino Transf (AST/SGOT) 16 U/L (15-37) Alanine Aminotransferase (ALT/SGPT) 29 U/L (16-63) Alkaline Phosphatase 42 U/L (46-116) Total Protein 5.1 g/dL (6.4-8.2) Albumin 2.8 g/dL (3.4-5.0) Albumin/Globulin Ratio 1.2 (1.0-1.7) Comment Review of Relevant I have reviewed the following items beverly (where applicable) has been applied. Labs Laboratory Tests Test 12/17/19 01:31 12/17/19 12:45 12/17/19 18:20 12/18/19 04:20 White Blood Count 13.0 x10^3/uL (4.0-11.0) 11.1 x10^3/uL (4.0-11.0) 6.0 x10^3/uL (4.0-11.0) Red Blood Count 4.76 x10^6/uL (4.30-5.70) 4.10 x10^6/uL (4.30-5.70) 3.48 x10^6/uL (4.30-5.70) Hemoglobin 13.7 g/dL (13.0-17.5) 12.0 g/dL (13.0-17.5) 10.2 g/dL (13.0-17.5) Hematocrit 40.2 % (39.0-53.0) 35.1 % (39.0-53.0) 29.6 % (39.0-53.0) Mean Corpuscular Volume 85 fL (79-100) 86 fL (79-100) 85 fL (79-100) Mean Corpuscular Hemoglobin 29 pg (25-35) 29 pg (25-35) 29 pg (25-35) Mean Corpuscular Hemoglobin Concent 34 g/dL (31-37) 34 g/dL (31-37) 35 g/dL (31-37) Red Cell Distribution Width 12.8 % (11.5-14.5) 12.9 % (11.5-14.5) 12.6 % (11.5-14.5) Platelet Count 281 x10^3/uL (140-400) 218 x10^3/uL (140-400) 184 x10^3/uL (140-400) Neutrophils (%) (Auto) 71 % (31-73) 68 % (31-73) 51 % (31-73) Lymphocytes (%) (Auto) 20 % (24-48) 24 % (24-48) 36 % (24-48) Monocytes (%) (Auto) 6 % (0-9) 6 % (0-9) 7 % (0-9) Eosinophils (%) (Auto) 2 % (0-3) 2 % (0-3) 6 % (0-3) Basophils (%) (Auto) 1 % (0-3) 1 % (0-3) 1 % (0-3) Neutrophils # (Auto) 9.2 x10^3/uL (1.8-7.7) 7.5 x10^3/uL (1.8-7.7) 3.0 x10^3/uL (1.8-7.7) Lymphocytes # (Auto) 2.6 x10^3/uL (1.0-4.8) 2.6 x10^3/uL (1.0-4.8) 2.1 x10^3/uL (1.0-4.8) Monocytes # (Auto) 0.8 x10^3/uL (0.0-1.1) 0.6 x10^3/uL (0.0-1.1) 0.4 x10^3/uL (0.0-1.1) Eosinophils # (Auto) 0.2 x10^3/uL (0.0-0.7) 0.2 x10^3/uL (0.0-0.7) 0.3 x10^3/uL (0.0-0.7) Basophils # (Auto) 0.1 x10^3/uL (0.0-0.2) 0.1 x10^3/uL (0.0-0.2) 0.0 x10^3/uL (0.0-0.2) Prothrombin Time 13.5 SEC (11.7-14.0) Prothromb Time International Ratio 1.1 (0.8-1.1) Activated Partial Thromboplast Time 22 SEC (24-38) Sodium Level 141 mmol/L (136-145) 142 mmol/L (136-145) Potassium Level 3.8 mmol/L (3.5-5.1) 3.8 mmol/L (3.5-5.1) Chloride Level 103 mmol/L (98-107) 108 mmol/L (98-107) Carbon Dioxide Level 25 mmol/L (21-32) 26 mmol/L (21-32) Anion Gap 13 (6-14) 8 (6-14) Blood Urea Nitrogen 22 mg/dL (8-26) 13 mg/dL (8-26) Creatinine 0.8 mg/dL (0.7-1.3) 0.6 mg/dL (0.7-1.3) Estimated GFR (Cockcroft-Gault) 115.1 160.4 BUN/Creatinine Ratio 28 (6-20) 22 (6-20) Glucose Level 130 mg/dL (70-99) 93 mg/dL (70-99) Calcium Level 8.1 mg/dL (8.5-10.1) 7.8 mg/dL (8.5-10.1) Total Bilirubin 0.3 mg/dL (0.2-1.0) 0.3 mg/dL (0.2-1.0) Aspartate Amino Transf (AST/SGOT) 22 U/L (15-37) 16 U/L (15-37) Alanine Aminotransferase (ALT/SGPT) 40 U/L (16-63) 29 U/L (16-63) Alkaline Phosphatase 59 U/L (46-116) 42 U/L (46-116) Total Protein 6.4 g/dL (6.4-8.2) 5.1 g/dL (6.4-8.2) Albumin 3.5 g/dL (3.4-5.0) 2.8 g/dL (3.4-5.0) Albumin/Globulin Ratio 1.2 (1.0-1.7) 1.2 (1.0-1.7) Lipase 143 U/L (73-393) Ethyl Alcohol Level 65 mg/dL (0-10) Urine Opiates Screen Neg (NEG) Urine Methadone Screen Neg (NEG) Urine Barbiturates Neg (NEG) Urine Phencyclidine Screen Neg (NEG) Urine Amphetamine/Methamphetamine Neg (NEG) Urine Benzodiazepines Screen Neg (NEG) Urine Cocaine Screen Neg (NEG) Urine Cannabinoids Screen Neg (NEG) Urine Ethyl Alcohol Neg (NEG) Laboratory Tests Test 12/17/19 12:45 12/17/19 18:20 12/18/19 04:20 White Blood Count 11.1 x10^3/uL (4.0-11.0) 6.0 x10^3/uL (4.0-11.0) Red Blood Count 4.10 x10^6/uL (4.30-5.70) 3.48 x10^6/uL (4.30-5.70) Hemoglobin 12.0 g/dL (13.0-17.5) 10.2 g/dL (13.0-17.5) Hematocrit 35.1 % (39.0-53.0) 29.6 % (39.0-53.0) Mean Corpuscular Volume 86 fL (79-100) 85 fL (79-100) Mean Corpuscular Hemoglobin 29 pg (25-35) 29 pg (25-35) Mean Corpuscular Hemoglobin Concent 34 g/dL (31-37) 35 g/dL (31-37) Red Cell Distribution Width 12.9 % (11.5-14.5) 12.6 % (11.5-14.5) Platelet Count 218 x10^3/uL (140-400) 184 x10^3/uL (140-400) Neutrophils (%) (Auto) 68 % (31-73) 51 % (31-73) Lymphocytes (%) (Auto) 24 % (24-48) 36 % (24-48) Monocytes (%) (Auto) 6 % (0-9) 7 % (0-9) Eosinophils (%) (Auto) 2 % (0-3) 6 % (0-3) Basophils (%) (Auto) 1 % (0-3) 1 % (0-3) Neutrophils # (Auto) 7.5 x10^3/uL (1.8-7.7) 3.0 x10^3/uL (1.8-7.7) Lymphocytes # (Auto) 2.6 x10^3/uL (1.0-4.8) 2.1 x10^3/uL (1.0-4.8) Monocytes # (Auto) 0.6 x10^3/uL (0.0-1.1) 0.4 x10^3/uL (0.0-1.1) Eosinophils # (Auto) 0.2 x10^3/uL (0.0-0.7) 0.3 x10^3/uL (0.0-0.7) Basophils # (Auto) 0.1 x10^3/uL (0.0-0.2) 0.0 x10^3/uL (0.0-0.2) Urine Opiates Screen Neg (NEG) Urine Methadone Screen Neg (NEG) Urine Barbiturates Neg (NEG) Urine Phencyclidine Screen Neg (NEG) Urine Amphetamine/Methamphetamine Neg (NEG) Urine Benzodiazepines Screen Neg (NEG) Urine Cocaine Screen Neg (NEG) Urine Cannabinoids Screen Neg (NEG) Urine Ethyl Alcohol Neg (NEG) Sodium Level 142 mmol/L (136-145) Potassium Level 3.8 mmol/L (3.5-5.1) Chloride Level 108 mmol/L (98-107) Carbon Dioxide Level 26 mmol/L (21-32) Anion Gap 8 (6-14) Blood Urea Nitrogen 13 mg/dL (8-26) Creatinine 0.6 mg/dL (0.7-1.3) Estimated GFR (Cockcroft-Gault) 160.4 BUN/Creatinine Ratio 22 (6-20) Glucose Level 93 mg/dL (70-99) Calcium Level 7.8 mg/dL (8.5-10.1) Total Bilirubin 0.3 mg/dL (0.2-1.0) Aspartate Amino Transf (AST/SGOT) 16 U/L (15-37) Alanine Aminotransferase (ALT/SGPT) 29 U/L (16-63) Alkaline Phosphatase 42 U/L (46-116) Total Protein 5.1 g/dL (6.4-8.2) Albumin 2.8 g/dL (3.4-5.0) Albumin/Globulin Ratio 1.2 (1.0-1.7) Medications Current Medications Pantoprazole Sodium 80 mg/ Sodium Chloride 100 ml @ 10 mls/hr Q10H IV Last administered on 12/18/19at 09:56; Start 12/17/19 at 01:45 Pantoprazole Sodium (PROTONIX VIAL for IV PUSH) 80 mg 1X ONCE IVP Last administered on 12/17/19at 02:06; Start 12/17/19 at 01:30; Stop 12/17/19 at 01:37; Status DC Ondansetron HCl (Zofran) 4 mg 1X ONCE IVP Last administered on 12/17/19at 01:59; Start 12/17/19 at 01:45; Stop 12/17/19 at 01:46; Status DC Sodium Chloride 1,000 ml @ 1,000 mls/hr 1X ONCE IV Last administered on 12/17/19at 01:59; Start 12/17/19 at 01:30; Stop 12/17/19 at 02:29; Status DC Iohexol (Omnipaque 300 Mg/ml) 75 ml 1X ONCE IV Last administered on 12/17/19at 02:31; Start 12/17/19 at 02:30; Stop 12/17/19 at 02:31; Status DC Ondansetron HCl (Zofran) 4 mg PRN Q8HRS PRN IV NAUSEA/VOMITING; Start 12/17/19 at 02:45; Stop 12/18/19 at 03:00; Status DC Sodium Chloride 1,000 ml @ 125 mls/hr Q8H IV Last administered on 12/17/19at 22:55; Start 12/17/19 at 02:45; Stop 12/18/19 at 03:00; Status DC Ringer's Solution 1,000 ml @ 50 mls/hr Q20H IV Last administered on 12/17/19at 09:32; Start 12/17/19 at 08:58; Stop 12/17/19 at 20:57; Status DC Propofol 20 ml @ As Directed STK-MED ONCE IV ; Start 12/17/19 at 09:54; Stop 12/17/19 at 09:54; Status DC Multivitamins (Thera M Plus) 1 tab DAILY PO Last administered on 12/18/19at 09:54; Start 12/17/19 at 12:30 Folic Acid (Folic Acid) 1 mg DAILY PO Last administered on 12/18/19at 09:54; Start 12/17/19 at 12:30 Thiamine Mononitrate (Vitamin B-1) 100 mg DAILY PO Last administered on 12/18/19at 09:54; Start 12/17/19 at 12:30 Lorazepam (Ativan) 4 mg PRN Q1HR PRN PO For CIWA 8-14; Start 12/17/19 at 11:45 Lorazepam (Ativan) 8 mg PRN Q1HR PRN PO For CIWA 15 or greater; Start 12/17/19 at 11:45 Lorazepam (Ativan Inj) 2 mg PRN Q1HR PRN IV For CIWA 8-14; Start 12/17/19 at 11:45 Lorazepam (Ativan Inj) 4 mg PRN Q1HR PRN IV For CIWA 15 or greater; Start 12/17/19 at 11:45 Haloperidol Lactate (Haldol Inj) 5 mg PRN Q4HRS PRN IVP Hallucinatns,Confusn,Delirium; Start 12/17/19 at 11:45 Diphenhydramine HCl (Benadryl) 25 mg PRN Q15MIN PRN IVP EPS symptoms 2'Haldol admin; Start 12/17/19 at 11:45 Clonidine HCl (Catapres) 0.1 mg PRN Q1HR PRN PO SBP > 180 or DBP > 100, MRX3; Start 12/17/19 at 11:45 Lorazepam (Ativan Inj) 2 mg PRN Q15MIN PRN IV SEE COMMENTS; Start 12/17/19 at 11:45; Status Cancel Lorazepam (Ativan Inj) 4 mg PRN Q15MIN PRN IV SEE COMMENTS; Start 12/17/19 at 11:45; Status Cancel Hydroxyzine HCl (Atarax) 25 mg PRN Q6HRS PRN PO ANXIETY / AGITATION; Start 12/17/19 at 12:30 Non-Formulary Medication (Cariprazine Hydrochloride (Vraylar)) 1 cap DAILY PO ; Start 12/18/19 at 09:00; Status UNV Active Scripts Active Reported Hydroxyzine Hcl 25 Mg Tablet 1 Tab PO PRN PRN Vraylar (Cariprazine Hydrochloride) 1.5 Mg Capsule 1 Cap PO DAILY 30 Days Vitals/I & O Vital Sign - Last 24 Hours 12/17/19 12/17/19 12/17/19 12/18/19 15:00 19:35 23:30 03:30 Temp 98.2 98.2 97.4 97.4 98.2 98.2 97.4 97.4 Pulse 76 80 62 Resp 18 19 19 19 B/P (MAP) 105/59 (74) 100/45 (63) 104/58 (73) 102/55 (71) Pulse Ox 100 100 100 99 O2 Delivery Room Air Room Air Room Air Room Air 12/18/19 07:59 Temp 97.9 97.9 Pulse 86 Resp 18 B/P (MAP) 109/66 (80) Pulse Ox 100 O2 Delivery Room Air Intake and Output 12/17/19 12/17/19 12/18/19 15:00 23:00 07:00 Intake Total 1280 ml 1100 ml 500 ml Output Total 250 ml Balance 1030 ml 1100 ml 500 ml NAEEM PIZANO MD Dec 18, 2019 11:15
[2019-12-18 11:59] VITALS: BP 112/61
[2019-12-18] MEDS ORDERED: PANT40TA77 PO (13:08)
--- NOTE | 2019-12-18 13:14 | PDOC3 ---
Discharge Summary Visit Information Date of Admission: Dec 17, 2019 Date of Discharge: Dec 18, 2019 Admitting Diagnosis: Upper GI bleed Final Diagnosis Upper GI bleed Brief Hospital Course Allergies Allergies Coded Allergies Type Severity Reaction Last Updated Verified No Known Drug Allergies 12/17/19 No Vital Signs Vital Signs Date Time Temp Pulse Resp B/P (MAP) Pulse Ox O2 Delivery O2 Flow Rate FiO2 12/18/19 11:59 97.9 73 16 112/61 (78) 99 Room Air 97.9 12/17/19 10:28 2 Lab Results Laboratory Tests Test 12/17/19 01:31 12/17/19 12:45 12/17/19 18:20 12/18/19 04:20 White Blood Count 13.0 x10^3/uL (4.0-11.0) 11.1 x10^3/uL (4.0-11.0) 6.0 x10^3/uL (4.0-11.0) Red Blood Count 4.76 x10^6/uL (4.30-5.70) 4.10 x10^6/uL (4.30-5.70) 3.48 x10^6/uL (4.30-5.70) Hemoglobin 13.7 g/dL (13.0-17.5) 12.0 g/dL (13.0-17.5) 10.2 g/dL (13.0-17.5) Hematocrit 40.2 % (39.0-53.0) 35.1 % (39.0-53.0) 29.6 % (39.0-53.0) Mean Corpuscular Volume 85 fL (79-100) 86 fL (79-100) 85 fL (79-100) Mean Corpuscular Hemoglobin 29 pg (25-35) 29 pg (25-35) 29 pg (25-35) Mean Corpuscular Hemoglobin Concent 34 g/dL (31-37) 34 g/dL (31-37) 35 g/dL (31-37) Red Cell Distribution Width 12.8 % (11.5-14.5) 12.9 % (11.5-14.5) 12.6 % (11.5-14.5) Platelet Count 281 x10^3/uL (140-400) 218 x10^3/uL (140-400) 184 x10^3/uL (140-400) Neutrophils (%) (Auto) 71 % (31-73) 68 % (31-73) 51 % (31-73) Lymphocytes (%) (Auto) 20 % (24-48) 24 % (24-48) 36 % (24-48) Monocytes (%) (Auto) 6 % (0-9) 6 % (0-9) 7 % (0-9) Eosinophils (%) (Auto) 2 % (0-3) 2 % (0-3) 6 % (0-3) Basophils (%) (Auto) 1 % (0-3) 1 % (0-3) 1 % (0-3) Neutrophils # (Auto) 9.2 x10^3/uL (1.8-7.7) 7.5 x10^3/uL (1.8-7.7) 3.0 x10^3/uL (1.8-7.7) Lymphocytes # (Auto) 2.6 x10^3/uL (1.0-4.8) 2.6 x10^3/uL (1.0-4.8) 2.1 x10^3/uL (1.0-4.8) Monocytes # (Auto) 0.8 x10^3/uL (0.0-1.1) 0.6 x10^3/uL (0.0-1.1) 0.4 x10^3/uL (0.0-1.1) Eosinophils # (Auto) 0.2 x10^3/uL (0.0-0.7) 0.2 x10^3/uL (0.0-0.7) 0.3 x10^3/uL (0.0-0.7) Basophils # (Auto) 0.1 x10^3/uL (0.0-0.2) 0.1 x10^3/uL (0.0-0.2) 0.0 x10^3/uL (0.0-0.2) Prothrombin Time 13.5 SEC (11.7-14.0) Prothromb Time International Ratio 1.1 (0.8-1.1) Activated Partial Thromboplast Time 22 SEC (24-38) Sodium Level 141 mmol/L (136-145) 142 mmol/L (136-145) Potassium Level 3.8 mmol/L (3.5-5.1) 3.8 mmol/L (3.5-5.1) Chloride Level 103 mmol/L (98-107) 108 mmol/L (98-107) Carbon Dioxide Level 25 mmol/L (21-32) 26 mmol/L (21-32) Anion Gap 13 (6-14) 8 (6-14) Blood Urea Nitrogen 22 mg/dL (8-26) 13 mg/dL (8-26) Creatinine 0.8 mg/dL (0.7-1.3) 0.6 mg/dL (0.7-1.3) Estimated GFR (Cockcroft-Gault) 115.1 160.4 BUN/Creatinine Ratio 28 (6-20) 22 (6-20) Glucose Level 130 mg/dL (70-99) 93 mg/dL (70-99) Calcium Level 8.1 mg/dL (8.5-10.1) 7.8 mg/dL (8.5-10.1) Total Bilirubin 0.3 mg/dL (0.2-1.0) 0.3 mg/dL (0.2-1.0) Aspartate Amino Transf (AST/SGOT) 22 U/L (15-37) 16 U/L (15-37) Alanine Aminotransferase (ALT/SGPT) 40 U/L (16-63) 29 U/L (16-63) Alkaline Phosphatase 59 U/L (46-116) 42 U/L (46-116) Total Protein 6.4 g/dL (6.4-8.2) 5.1 g/dL (6.4-8.2) Albumin 3.5 g/dL (3.4-5.0) 2.8 g/dL (3.4-5.0) Albumin/Globulin Ratio 1.2 (1.0-1.7) 1.2 (1.0-1.7) Lipase 143 U/L (73-393) Ethyl Alcohol Level 65 mg/dL (0-10) Urine Opiates Screen Neg (NEG) Urine Methadone Screen Neg (NEG) Urine Barbiturates Neg (NEG) Urine Phencyclidine Screen Neg (NEG) Urine Amphetamine/Methamphetamine Neg (NEG) Urine Benzodiazepines Screen Neg (NEG) Urine Cocaine Screen Neg (NEG) Urine Cannabinoids Screen Neg (NEG) Urine Ethyl Alcohol Neg (NEG) Laboratory Tests Test 12/17/19 18:20 12/18/19 04:20 Urine Opiates Screen Neg (NEG) Urine Methadone Screen Neg (NEG) Urine Barbiturates Neg (NEG) Urine Phencyclidine Screen Neg (NEG) Urine Amphetamine/Methamphetamine Neg (NEG) Urine Benzodiazepines Screen Neg (NEG) Urine Cocaine Screen Neg (NEG) Urine Cannabinoids Screen Neg (NEG) Urine Ethyl Alcohol Neg (NEG) White Blood Count 6.0 x10^3/uL (4.0-11.0) Red Blood Count 3.48 x10^6/uL (4.30-5.70) Hemoglobin 10.2 g/dL (13.0-17.5) Hematocrit 29.6 % (39.0-53.0) Mean Corpuscular Volume 85 fL (79-100) Mean Corpuscular Hemoglobin 29 pg (25-35) Mean Corpuscular Hemoglobin Concent 35 g/dL (31-37) Red Cell Distribution Width 12.6 % (11.5-14.5) Platelet Count 184 x10^3/uL (140-400) Neutrophils (%) (Auto) 51 % (31-73) Lymphocytes (%) (Auto) 36 % (24-48) Monocytes (%) (Auto) 7 % (0-9) Eosinophils (%) (Auto) 6 % (0-3) Basophils (%) (Auto) 1 % (0-3) Neutrophils # (Auto) 3.0 x10^3/uL (1.8-7.7) Lymphocytes # (Auto) 2.1 x10^3/uL (1.0-4.8) Monocytes # (Auto) 0.4 x10^3/uL (0.0-1.1) Eosinophils # (Auto) 0.3 x10^3/uL (0.0-0.7) Basophils # (Auto) 0.0 x10^3/uL (0.0-0.2) Sodium Level 142 mmol/L (136-145) Potassium Level 3.8 mmol/L (3.5-5.1) Chloride Level 108 mmol/L (98-107) Carbon Dioxide Level 26 mmol/L (21-32) Anion Gap 8 (6-14) Blood Urea Nitrogen 13 mg/dL (8-26) Creatinine 0.6 mg/dL (0.7-1.3) Estimated GFR (Cockcroft-Gault) 160.4 BUN/Creatinine Ratio 22 (6-20) Glucose Level 93 mg/dL (70-99) Calcium Level 7.8 mg/dL (8.5-10.1) Total Bilirubin 0.3 mg/dL (0.2-1.0) Aspartate Amino Transf (AST/SGOT) 16 U/L (15-37) Alanine Aminotransferase (ALT/SGPT) 29 U/L (16-63) Alkaline Phosphatase 42 U/L (46-116) Total Protein 5.1 g/dL (6.4-8.2) Albumin 2.8 g/dL (3.4-5.0) Albumin/Globulin Ratio 1.2 (1.0-1.7) Brief Hospital Course Mr Macedo is a 29 yo M w/ PMHx peptic ulcer disease who presents with hemate mesis just prior to arrival 12/17/2019. He was attending a concert drinking alcohol and he vomited a large quantity of bright red blood.seen with bright red blood staining his face arms, legs. c/o dizziness and upper abdominal pain. CT abdomen/pelvis: 1. Mild distal esophageal wall thickening, may represent esophagitis. 2. Distal periesophageal enlarged lymph nodes, likely reactive. 3. Small hiatal hernia. 12/16: EGD - ulcerative esophagitis (GERD) with 5 cm Hiatal hernia and small non bleeding Berkley Pablo tear as well as gastritis. Feeling much better today. discussed ETOH cessation for at least a month and BID protonix for 30 days. Hb stable. Discussed with him and his mother. Consults: GI Problem list: Acute upper GI bleed ALCOHOL ABUSE HX recent increased intake - ETOH 65 at 0130 12/17/2019 ulcerative esophagitis (GERD) 5 cm Hiatal hernia Small non bleeding Berkley Pablo tear ON EGD 12/16 OBESITY bipolar disorder hypotensive shock, HYPOVOLEMIC Greater than 30 minutes spent on d/c Discharge Information Condition at Discharge: Improved Follow Up: Weeks (1) Disposition/Orders: D/C to Home Scheduled Cariprazine Hydrochloride (Vraylar) 1.5 Mg Capsule, 1 CAP PO DAILY for schizophrenia for 30 Days, #30 Ref 0 (Reported) Entered as Reported by: MAE HERNANDES on 12/17/19503 Last Taken: Unknown Dose on Unknown Date & Time Last Action: Converted on 12/17/191228 by BIANCA WAYNE MD Pantoprazole Sodium (Pantoprazole Sodium ) 40 Mg Tablet.dr, 40 MG PO BID for GERD for 30 Days, #60 Prescribed by: NAEEM PIZANO MD on 12/18/19 1308 Scheduled PRN Hydroxyzine Hcl (Hydroxyzine Hcl) 25 Mg Tablet, 1 TAB PO PRN PRN for ANXIETY / AGITATION, #30 (Reported) Entered as Reported by: MAE HERNANDES on 12/17/19503 Last Taken: UNKNOWN on Unknown Date & Time Last Action: Continued on 12/17/191228 by MD JERICA CROWDER,NAEEM Ivan MD Dec 18, 2019 13:14
--- NOTE | 2019-12-18 15:54 | NUR ---
Discharge Note: [facility] Discharge instructions and discharge home medications reviewed with Patient and a copy given. All questions have been answered and understanding verbalized. The following instructions and handouts were given: patient visit report, medication information, education. Discontinued lines and drains: peripheral IVs, tips intact. Patient discharged to home with self care via private vehicle. Patient left unit awake, in stable condition, with all personal belongings.
== END 2019-12-18 15:07 | disposition home or self-care (01) | DRG 368 ==
LOC: ER 01:16 → 1 WEST ICU 03:46 → 6 SOUTH 15:19
PROVIDERS: ADMIT Family Medicine; ATTEND Family Medicine
PROC: 0DJ08ZZ Inspection of Upper Intestinal Tract, Via Natural or Artificial Opening Endoscopic (ICD-10-PCS; principal; 2019-12-17 09:30)
DX: K22.6 Gastro-esophageal laceration-hemorrhage syndrome (principal); R57.1 Hypovolemic shock; K22.10 Ulcer of esophagus without bleeding; K29.71 Gastritis, unspecified, with bleeding; E66.9 Obesity, unspecified; Z68.29 Body mass index [BMI] 29.0-29.9, adult; F10.10 Alcohol abuse, uncomplicated; F31.9 Bipolar disorder, unspecified; K44.9 Diaphragmatic hernia without obstruction or gangrene; Z82.49 Family history of ischemic heart disease and other diseases of the circulatory system; Z87.11 Personal history of peptic ulcer disease; Z87.19 Personal history of other diseases of the digestive system; K21.9 Gastro-esophageal reflux disease without esophagitis
CPT/HCPCS: 36415; 43239; 74177; 80053; 80307; 83690; 85025; 85610; 85730; 86850; 86900; 86901; 93005; C9113; G0480; J2405; J2704; J7030; J7120; Q9967; G0378